=== PATIENT | female | born 1945 | race Caucasian/White ===

== ENCOUNTER → 2018-07-29 | Outpatient (CLI) | payer MEDICARE | END | disposition home or self-care (01) | LOC: RAH 16:15 | PROVIDERS: ATTEND Nurse Practitioner Family | DX: M51.36 Other intervertebral disc degeneration, lumbar region (principal); M47.816 Spondylosis without myelopathy or radiculopathy, lumbar region; M25.552 Pain in left hip; M25.551 Pain in right hip | CPT/HCPCS: 72100; 73521 ==